=== PATIENT | female | born 2000 | race Caucasian/White ===

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

== ENCOUNTER 2023-07-06 16:52 | Emergency (ER) | payer MEDICAID ==
[2023-07-06 17:21] VITALS: PULSE 97; RESP 16; TEMP 98.6; O2SAT 99
--- NOTE | 2023-07-06 17:46 | ERPHSYRPT ---
- History of Present Illness Time Seen by Provider: 07/06/23 17:43 Source: patient Exam Limitations: no limitations Patient Subjective Stated Complaint: Pt reports she started experiencing right outter upper thigh pain approx 3 days ago that has continued to worsen and even more so since this morning. Pt took tylenol with no relief. No trauma/fall/reason for pain that pt can think of. Triage Nursing Assessment: Pt alert and oriented x3. Respiration easy/nonlabored. Skin w/p/d. Accompanied by fiance. No obvious deformities/swelling. Pt reports outter upper thigh is tender with deep palpation. Physician History: Pt reports she started experiencing right outter upper thigh pain approx 3 days ago that has continued to worsen and even more so since this morning. Pt took tylenol with no relief. No trauma/fall/reason for pain that pt can think of. Method of Injury: unknown Occurred: last week Quality: constant Severity of Pain-Max: mild Severity of Pain-Current: mild Lower Extremities Pain: hip: right Modifying Factors: Improves With: nothing Associated Symptoms: none Allergies/Adverse Reactions: aspirin Adverse Reaction (Verified 07/06/23 17:19) Home Medications: No Reportable Medications [No Reported Medications] 07/06/23 [History] Hx Tetanus, Diphtheria Vaccination/Date Given: Yes Hx Influenza Vaccination/Date Given: No Hx Pneumococcal Vaccination/Date Given: No Travel Risk - International Travel Have you traveled outside of the country in past 3 weeks: No - Coronavirus Screening Are you exhibiting any of the following symptoms?: No Close contact with a COVID-19 positive Pt in past 14-21 Days: No - Vaccine Status Have you recieved a Covid-19 vaccination: No - Review of Systems Constitutional: No Symptoms Eyes: No Symptoms Ears, Nose, & Throat: No Symptoms Respiratory: No Symptoms Cardiac: No Symptoms Abdominal/Gastrointestinal: No Symptoms Genitourinary Symptoms: No Symptoms Musculoskeletal: Other (right lateral thigh painupper and middle part of thigh) - Past Medical History Pertinent Past Medical History: Yes Neurological History: No Pertinent History ENT History: No Pertinent History Cardiac History: No Pertinent History Respiratory History: No Pertinent History Endocrine Medical History: No Pertinent History Musculoskeletal History: Other GI Medical History: No Pertinent History History: No Pertinent History Psycho-Social History: No Pertinent History Female Reproductive Disorders: No Pertinent History 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 - Past Surgical History Past Surgical History: No Neuro Surgical History: No Pertinent History Cardiac: No Pertinent History Respiratory: No Pertinent History Gastrointestinal: No Pertinent History Genitourinary: No Pertinent History Musculoskeletal: No Pertinent History Female Surgical History: No Pertinent History - Social History Smoking Status: Former smoker Exposure to second hand smoke: No Drug Use: none Patient Lives Alone: No - Female History Hx Last Menstrual Period: 07/05/23 Hx Now: No - Nursing Vital Signs Nursing Vital Signs: Initial Vital Signs Temperature 98.6 F 07/06/23 17:09 Pulse Rate 97 H 07/06/23 17:09 Respiratory Rate 16 07/06/23 17:09 Blood Pressure 114/68 07/06/23 17:09 O2 Sat by Pulse Oximetry 99 07/06/23 17:09 Pain Scale Pain Intensity 8 - Physical Exam General Appearance: no apparent distress Eyes, Ears, Nose, Throat Exam: normal ENT inspection Neck Exam: normal inspection Cardiovascular/Respiratory Exam: chest non-tender Gastrointestinal/Abdominal Exam: non-tender Back Exam: normal inspection Hips Exam: right: normal inspection, soft tissue tenderness Legs Exam: bilateral leg: non-tender Knees Exam: bilateral knee: non-tender Ankle Exam: bilateral ankle: non-tender Foot Exam: bilateral foot: non-tender Neuro/Tendon Exam: normal sensation, normal motor functions, normal tendon functions, responds to pain Mental Status Exam: alert, oriented x 3, cooperative Skin Exam: normal color SpO2 Interpretation: normal SpO2: 99 O2 Delivery: Room Air - Course Nursing assessment & vital signs reviewed: Yes - Radiology Exams Femur X-ray Interpretation: Reviewed by me, Negative, No Fracture Ordered Tests: Active Orders 24 hr Category Date Time Status FEMUR Stat Exams 07/06/23 17:42 Taken Medication Summary Discontinued Medications Generic Name Dose Route Start Last Admin Trade Name Michael PRN Reason Stop Dose Admin Acetaminophen 975 mg 07/06/23 17:51 07/06/23 17:56 Acetaminophen 325 Mg Tablet PO 07/06/23 17:52 975 mg STAT ONE Administration Acetaminophen Confirm 07/06/23 17:55 Acetaminophen 325 Mg Tablet Administered 07/06/23 17:56 Dose 975 mg .ROUTE .STK-MED ONE - Progress Progress: improved, pain not gone completely Counseled pt/family regarding: diagnosis, rad results Medical Desision Making - Diagnostic Testing Diagnostic test were ordered, analyzed, and reviewed by me: Yes Radiological Interpretation: Reviewed by me - Risk of complications Minimal Risk: Minimal risk of morbidity - Departure Departure Disposition: Home Clinical Impression: Right thigh pain Condition: Stable Critical Care Time: No Referrals: DOCTOR,NO FAMILY [Primary Care Provider] - Follow Up with PCP/3 days Additional Instructions: Discharge/Care Plan TOMMY MARQUES was seen on 07/06/23 in the Emergency Room. The patient was counseled regarding Diagnosis,Lab results, Imaging studies, need for follow up and when to return to the Emergency Room. Prescriptions given: Discharge Note I have spoken with the patient and/or caregivers. I have explained the patient's condition, diagnosis and treatment plan based on the information available to me at this time. I have answered the patient's and/or caregiver's questions and addressed any concerns. The patient and/or caregivers have as good understanding of the patient's diagnosis, condition and treatment plan as can be expected at this point. The vital signs have been stable. The patient's condition is stable and appropriate for discharge from the emergency department. The patient will pursue further outpatient evaluation with the primary care physician or other designated or consulting physician as outlined in the discharge instructions. The patient and/or caregivers are agreeable to this plan of care and follow-up instructions have been explained in detail. The patient and/or caregivers have received these instruction. The patient/and or caregivers are aware that any significant change in condition or worsening of symptoms should prompt an immediate return to this or the closest emergency department or call 911. TOMMY MARQUES was seen on 07/06/23 n the Emergency Room. At that time you were treated for an emergent condition, during your visit Laboratory, Radiology and/or other procedures may have been ordered. It is very important that you follow-up with your Primary Care Physician NO FAMILY DOCTOR within the next 24-48 hours to review your Emergency Room visit and the final results of testing that was ordered. Some test results such as Urine Cultures, Blood Cultures, and other cultures if ordered will not be finalized for 24-48 hours. If you do not have a Primary Care Provider please call the medical records department at [phone] ext [phone] to obtain a copy of your results or you may sign into our patient portal to obtain these results by visiting us @ [email or web address] and completing the following steps: 1. Click on the Patient Portal link 2. Click the Patient Self Enrollment Link to complete the enrollment form and entering your 3. Once the enrollment form is completed you will receive an email with a temporary ID and password at the email address you provided. 4. Next choose a user name and password. Your user name must be at least 4 characters long and your password must be at least 4 characters long. 5. Choose a security question from the list and provide your answer to the question. If you already have signed into the Health Portal you may access your Health Care Information 04/02 by the following steps: 1. Login to our website @ [email or web address] 2. Enter your original user name and password. FAQS The [facility] Health Portal is an online tool that contains your Lab Results, Radiology Reports, Visit History, Discharge Instructions and Health Summary Lab and Radiology Results will not be available for 72 hours on the portal. The Portal is a secure site, passwords are encryted and URLs are re-written so they cannot be copied and pasted. You and authorized family members are the only ones who can access your Portal. Also there is a timeout feature that protects your information if you leave the Portal page open. If you have technical difficulty please use the Contact Us link on the page this will allow you to submit any questions you have regarding the Portal or you may contact the Medical Record Department at [phone] ext [phone].
[2023-07-06] MEDS ORDERED: TYLENOL 325 MG PO ONE (17:51)
[2023-07-06] MEDS ORDERED: TYLENOL 325 MG ONE (17:55)
[2023-07-06 18:09] VITALS: BP 115/74
--- NOTE | 2023-07-06 21:08 | XRAY ---
Indication: Pain 3 days. Comparison: None 2 view right femur obtained. No bony, articular, or soft tissue abnormalities.
== END 2023-07-06 18:26 | disposition home or self-care (01) ==
LOC: ED 16:52
DX: M79.651 Pain in right thigh (principal); Z28.310 Unvaccinated for COVID-19
CPT/HCPCS: 73552; 99283; A9270-GY